=== PATIENT | female | born 1965 | race Caucasian/White ===

== ENCOUNTER 2018-12-14 10:15 | Observation (INO) | payer OTHER ==
[2018-12-14] MEDS ORDERED: SODIUM CHLORIDE 0.9% 500 ML IV ONE (10:31)
--- NOTE | 2018-12-14 10:34 | Emergency Department Record ---
History of Present Illness - General Chief complaint: Female Urogenital Problem Stated complaint: POSSIBLE BLADDER INFECTION Time Seen by Provider: 12/14/18 10:27 Source: Patient Mode of Arrival: Ambulatory Limitations: No limitations - History of Present Illness Initial comments: The patient is here due to worsening dysuria for the last few days. She was originally at the 2 weeks ago and diagnosed with a UTI. The patient states she had been doing better then 2 days ago her symptoms returned. She had a fever or 101 2 days ago and has had a lot of bladder pressure. The patient denies any back pain, vomiting, diarrhea or AP. MD Complaint: Dysuria Onset/Timin -: Week(s) Improves with: None Worsens with: None Associated Symptoms: Abdominal pain, Fever/chills, Nausea/vomiting - Related Data Allergies Allergy/AdvReac Type Severity Reaction Status Date / Time Penicillins Allergy Intermediate hives Verified 12/14/18 10:20 promethazine HCl AdvReac Intermediate anxious Verified 12/14/18 10:30 [From Phenergan] thiethylperazine maleate AdvReac Intermediate muscle Verified 12/14/18 10:30 [From Torecan] spasm Travel Screening - Travel/Exposure Within Last 30 Days Have you traveled within the last 30 days?: No Review of Systems Constitutional: Reports: Fever, Malaise. Denies: Chills Eyes: Denies: Eye discharge ENT: Denies: Congestion Respiratory: Denies: Cough Cardiovascular: Denies: Arrhythmia Endocrine: Reports: Fatigue Gastrointestinal: Denies: Nausea Genitourinary: Reports: Dysuria Musculoskeletal: Denies: Arthralgia Skin: Denies: Bruising Neurological: Denies: Abnormal gait Past Medical History - SOCIAL HISTORY Smoking Status: Never smoker Alcohol Use: None Drug Use: None - RESPIRATORY Hx Respiratory Disorders: No - CARDIOVASCULAR Hx Cardio Disorders: Yes Hx Hypertension: Yes - NEURO Hx Neuro Disorders: No - GI Hx GI Disorders: No - Hx Genitourinary Disorders: Yes Hx UTI: Yes - ENDOCRINE Hx Endocrine Disorders: Yes Hx Thyroid Disease: Yes - MUSCULOSKELETAL Hx Musculoskeletal Disorders: No - PSYCH Hx Psych Problems: Yes Hx Anxiety: Yes Hx Depression: Yes - HEMATOLOGY/ONCOLOGY Hx Hematology/Oncology Disorders: No Family Medical History Any Significant Family History?: No Physical Exam - General General Appearance: Alert, Oriented x3, Cooperative, No acute distress - Head Head exam: Atraumatic, Normocephalic, Normal inspection - Eye Eye exam: Normal appearance, PERRL - ENT Throat exam: Normal inspection. negative: Tonsillar erythema, Tonsillar exudate - Neck Neck exam: Normal inspection, Full ROM. negative: Tenderness - Respiratory Respiratory exam: Normal lung sounds bilaterally. negative: Respiratory distress - Cardiovascular Cardiovascular Exam: Regular rate, Normal rhythm, Normal heart sounds - GI/Abdominal GI/Abdominal exam: Soft, Normal bowel sounds. negative: Tenderness - Extremities Extremities exam: Normal inspection, Full ROM, Normal capillary refill. negative: Tenderness - Back Back exam: Reports: Normal inspection, CVA tenderness (L). Denies: CVA tenderness (R), Vertebral tenderness - Neurological Neurological exam: Alert, Normal gait. negative: Abnormal gait, Motor sensory deficit Course Vital Signs 12/14/18 10:17 Temperature 99.2 F Pulse Rate 89 Respiratory 20 Rate Blood Pressure 143/85 Pulse Ox 98 - Reevaluation(s) Reevaluation #1: The patient is doing very well at this time. I did discuss the lab and CT results and the fact the patient clearly has a kidney infection. Due to that fact I did recommend hospital admission overnight and the patient did agree. I then did discuss the issues with Dr. Giles and he did accept the admission. 12/14/18 12:09 Medical Decision Making - Data Complexity MDM Data: Labs Ordered and/or Reviewed, X-Ray Ordered and/or Reviewed - Lab Data Result diagrams: 12/14/18 10:35 12/14/18 10:35 - Radiology Data Radiology results: Report reviewed (CT: L kidney and ureter stranding due to pyelonephritis. Neg for stone or hydro.) Disposition Disposition: Discharge Clinical Impression: Pyelonephritis Disposition: Still a Patient at [facility] Decision to Admit Date: 12/14/18 Decision to Admit Time: 12:10 Accepting Physician: Tisha Time Discussed w/Accepting Physician: 12:10 Condition: (2) Stable Time of Disposition: 12:10 Quality - Quality Measures Quality Measures: N/A - Blood Pressure Screening View Details: Yes Does Patient Have Any of the Following: No Blood Pressure Classification: Pre-Hypertensive BP Reading Systolic Measurement: 143 Diastolic Measurement: 85 Screening for High Blood Pressure: < Pre-Hypertensive BP, F/U Documented > [G8950] Pre-Hypertensive Follow-up Interventions: Referral to alternative/primary care provider.
[2018-12-14 10:45] LABS: URINE APPEARANCE CLEAR; URINE BILIRUBIN NEGATIVE (NEGATIVE); URINE BLOOD MODERATE (NEGATIVE); URINE COLOR YELLOW; URINE GLUCOSE (UA) NEGATIVE (NEGATIVE); URINE KETONE NEGATIVE (NEGATIVE); URINE LEUKOCYTE ESTERASE MODERATE (NEGATIVE); URINE NITRITE NEGATIVE (NEGATIVE); URINE PROTEIN TRACE (NEGATIVE); URINE UROBILINOGEN 0.2 E.U./dL (0.20 - 1.00)
[2018-12-14 10:46] LABS: ABSOLUTE NEUTROPHIL COUNT 13.34; HEMATOCRIT 44.2 % (35.0-47.0); HEMOGLOBIN 14.3 gm/dl (11.6-16.0); MEAN CORPUSCULAR HEMOGLOBIN 30.4 pg (27-33); MEAN CORPUSCULAR HGB CONC 32.4 g/dl (32-36); MEAN PLATELET VOLUME 10.9 fl (7.4-10.4); PLATELET COUNT 229 K/uL (130-400); RED CELL DISTRIBUTION WIDTH 14.8 % (11.5-14.5); WHITE BLOOD COUNT W/O DIFF 16.5 K/uL (4.2-12.2)
[2018-12-14 10:56] LABS: URINE BACTERIA 4+; URINE EPITHELIAL CELLS RARE (FEW)
[2018-12-14 11:00] LABS: BLOOD UREA NITROGEN 8 mg/dL (6-20); CREATININE 0.6 mg/dL (0.5-0.9); EST GLOMERULAR FILTRATION RATE > 60 mL/min
[2018-12-14 11:01] LABS: PLATELET ESTIMATE NORMAL (NORMAL)
[2018-12-14 11:03] LABS: GLUCOSE,RANDOM 147 mg/dL (74-109)
[2018-12-14] MEDS ORDERED: CIPROFLOXACIN LACTATE/D5W 400 MG/200 ML BAG IVPB ONE (11:06)
[2018-12-14] MEDS ORDERED: KETOROLAC 30 MG/ML VIAL IVP ONE (11:38)
[2018-12-14] MEDS ORDERED: CIPROFLOXACIN LACTATE/D5W 400 MG/200 ML BAG IVPB SCH (13:03)
--- NOTE | 2018-12-14 13:12 | History & Physical ---
History of Present Illness - Date of Service Date of Service for History & Physical: 12/14/18 - History of Present Illness Admitting Diagnosis: 1. Acute Pyelonephritis History of Present Illness: Mrs. Shankar is a pleasant 53 y/o female who presents with symptoms of acute left lower back pain, and urinary frequency. The patient was seen in [facility] on 11/30 with complaint of urinary frequency, burning and urgency and was diagnosed with UTI with UA showing large leukocytes, and subsequent culture showing E. coli and sensitivity to Nitrofurantoin. The patient completed a seven day course of Nitrofurnatoin and says that she felt better but her over the weekend her symptoms returned. She was following up with Dr. Jenkins today to establish care at [facility] and another UA was drawn which showed hematuria, large nitrites and leukcoytes. The patient was sent to the ED for further evaluation and she is admitted for IV antibiotic therapy for recurring UTI. PCP: Dr. Jenkins. Travel Screening - Travel/Exposure Within Last 30 Days Have you traveled within the last 30 days?: No Review of Systems Constitutional: Reports: Fever, Malaise. Denies: Chills Eyes: Denies: Eye discharge ENT: Denies: Congestion Respiratory: Denies: Cough Cardiovascular: Denies: Arrhythmia Endocrine: Reports: Fatigue Gastrointestinal: Denies: Nausea Genitourinary: Reports: Dysuria Musculoskeletal: Denies: Arthralgia Skin: Denies: Bruising Neurological: Denies: Abnormal gait Past Medical History - SOCIAL HISTORY Smoking Status: Never smoker Alcohol Use: None Drug Use: None - RESPIRATORY Hx Respiratory Disorders: No - CARDIOVASCULAR Hx Cardio Disorders: Yes Hx Hypertension: Yes - NEURO Hx Neuro Disorders: No - GI Hx GI Disorders: No - Hx Genitourinary Disorders: Yes Hx UTI: Yes - ENDOCRINE Hx Endocrine Disorders: Yes Hx Thyroid Disease: Yes - MUSCULOSKELETAL Hx Musculoskeletal Disorders: No - PSYCH Hx Psych Problems: Yes Hx Anxiety: Yes Hx Depression: Yes - HEMATOLOGY/ONCOLOGY Hx Hematology/Oncology Disorders: No Family Medical History Any Significant Family History?: No H&P Meds/Allergies - Allergies Allergies: Allergies Allergy/AdvReac Type Severity Reaction Status Date / Time Penicillins Allergy Intermediate hives Verified 12/14/18 10:20 promethazine HCl AdvReac Intermediate anxious Verified 12/14/18 10:30 [From Phenergan] thiethylperazine maleate AdvReac Intermediate muscle Verified 12/14/18 10:30 [From Torecan] spasm - Active Medications Active Medications: Current Medications Acetaminophen (Tylenol 325mg) 650 mg PO Q4H PRN PRN Reason: PAIN - MILD(1-4)/FEVER Sodium Chloride () 1,000 mls @ 100 mls/hr IV .Q10H PRN PRN Reason: LARGE VOLUME IV Ciprofloxacin Lactate (Cipro) 400 mg in 200 mls @ 200 mls/hr IVPB Q12H ELPIDIO Stop: 12/19/18 13:04 Levothyroxine Sodium (Synthroid) 50 mcg PO DAILY [facility]PIDIO Metoprolol Succinate (Toprol Xl) 25 mg PO DAILY [facility] Non-Formulary Medication (Citalopram Hydrobromide [Citalopram Hbr]) 40 mg PO DAILY [facility]IO Quetiapine Fumarate (Seroquel) 25 mg PO DAILY [facility] Physical Exam - Vital Signs Vital Signs: Vital Signs - Last 24 Hrs Temp Pulse Resp BP Pulse Ox 12/14/18 10:17 99.2 F 89 20 143/85 98 - General General Appearance: Alert, Oriented x3, Cooperative, No acute distress Limitations: No limitations - Head Head exam: Atraumatic, Normocephalic, Normal inspection - Eye Eye exam: Normal appearance, PERRL - ENT Throat exam: Normal inspection. negative: Tonsillar erythema, Tonsillar exudate - Neck Neck exam: Normal inspection, Full ROM. negative: Tenderness - Respiratory Respiratory exam: Normal lung sounds bilaterally. negative: Respiratory distress - Cardiovascular Cardiovascular Exam: Regular rate, Normal rhythm, Normal heart sounds Peripheral Pulses: 3+: Radial (R), Radial (L), Dorsalis Pedis (R), Dorsalis Pedis (L) - GI/Abdominal GI/Abdominal exam: Soft, Normal bowel sounds. negative: Tenderness - Rectal Rectal exam: Deferred - exam: Deferred - Extremities Extremities exam: Normal inspection, Full ROM, Normal capillary refill. negative: Tenderness - Back Back exam: Reports: Normal inspection, CVA tenderness (L). Denies: CVA tenderness (R), Vertebral tenderness - Neurological Neurological exam: Alert, Normal gait. negative: Abnormal gait, Motor sensory deficit Results - Labs Result Diagrams: 12/14/18 10:35 12/14/18 10:35 Labs Last 24 Hours: Laboratory Results - last 24 hr 12/14/18 12/14/18 12/14/18 10:35 10:35 10:35 WBC 16.5 H RBC 4.70 Hgb 14.3 Hct 44.2 MCV 94.0 MCH 30.4 MCHC 32.4 RDW 14.8 H Plt Count 229 MPV 10.9 H Neutrophils % 79.0 Eosinophils % Not Reportable Basophils % Not Reportable Absolute Neutrophils 13.34 Lymphocytes 12.0 L Monocytes 9.0 Platelet Estimate Normal RBC Morphology Normal Sodium 135 L Potassium 3.7 Chloride 99 Carbon Dioxide 24.0 Anion Gap 12.0 BUN 8 Creatinine 0.6 Estimated GFR > 60 Random Glucose 147 H Calcium 9.1 C-Reactive Protein Urine Color Yellow Urine Appearance Clear Urine pH 7.0 Ur Specific [place] 1.010 Urine Protein Trace H Urine Glucose (UA) Negative Urine Ketones Negative Urine Blood Moderate Urine Nitrite Negative Urine Bilirubin Negative Urine Urobilinogen 0.2 Ur Leukocyte Esterase Moderate H Urine RBC 7 - 10 Urine WBC 10 - 15 Ur Epithelial Cells Rare Urine Bacteria 4+ 12/14/18 10:35 WBC RBC Hgb Hct MCV MCH MCHC RDW Plt Count MPV Neutrophils % Eosinophils % Basophils % Absolute Neutrophils Lymphocytes Monocytes Platelet Estimate RBC Morphology Sodium Potassium Chloride Carbon Dioxide Anion Gap BUN Creatinine Estimated GFR Random Glucose Calcium C-Reactive Protein 19.40 H Urine Color Urine Appearance Urine pH Ur Specific [place] Urine Protein Urine Glucose (UA) Urine Ketones Urine Blood Urine Nitrite Urine Bilirubin Urine Urobilinogen Ur Leukocyte Esterase Urine RBC Urine WBC Ur Epithelial Cells Urine Bacteria VTE H&P Assessment - Risk for VTE Risk for VTE: No Risk Level: Very Low Risk Assessment Date: 12/14/18 Risk Assessment Time: 13:30 VTE Orders Placed or Will Be Placed: No VTE Reason for No Prophylaxis: Not Indicated (Pt ambulatory) Plan - Detailed Diagnosis and Plan (1) Acute pyelonephritis Current Visit: Yes Status: Acute Base Code: N10 - ACUTE PYELONEPHRITIS Comment: 12/14/18: - CT abdo/pelvis: left perinephric/periuretral fat stranding noted. - UA positive for RBCs, leukocytes/nitrites. WBC 16.5, mild CVA tenderness. - Last UCX: E coli. > 100K, new CHERELLE pending. - Cipro 400mg IV Q12H ordered pending cultures. IVF 0.9% nacl @ 100mL/hr. - Tylenol 650mg Q4H PRN fever/pain. - Repeat CBC w/diff and BMP ordered. (2) HTN (hypertension) Current Visit: Yes Status: Acute Base Code: I10 - ESSENTIAL (PRIMARY) HYPERTENSION Comment: 12/14/18: - Resume Metoprolol 25mg daily. (3) Depression Current Visit: Yes Status: Chronic Base Code: F32.9 - MAJOR DEPRESSIVE DISORDER, SINGLE EPISODE, UNSPECIFIED Comment: 12/14/18: - Resume Celexa 40mg, Seroquel 25 mg QD. (4) Hypothyroid Current Visit: Yes Status: Acute Base Code: E03.9 - HYPOTHYROIDISM, UNSPECIFIED Comment: 12/14/18: - Resume Levothyroxine 50mcg daily. (5) DVT prophylaxis Current Visit: Yes Status: Acute Base Code: Z29.9 - ENCOUNTER FOR PROPHYLACTIC MEASURES, UNSPECIFIED Comment: 12/14/18: - Nursing to encourage ambulation. (6) Full code status Current Visit: Yes Status: Acute Base Code: Z78.9 - OTHER SPECIFIED HEALTH STATUS
[2018-12-14] MEDS: 0.9 % SODIUM CHLORIDE 1000ML 1,000 ML IV PRN (14:00)
[2018-12-14] MEDS: ACETAMINOPHEN 325 MG TAB PO PRN (15:48)
[2018-12-14] MEDS: KETOROLAC 30 MG/ML VIAL IVP PRN (17:38)
[2018-12-14] MEDS: CEFTRIAXONE 1GM/50ML BAG 1 GM/50 ML BAG IVPB SCH (17:44)
[2018-12-14] MEDS ORDERED: LORATADINE 10 MG TABLET PO SCH (22:00)
[2018-12-14] MEDS ORDERED: QUETIAPINE FUMARATE 25 MG TABLET PO PRN (22:00)
[2018-12-14] MEDS ORDERED: CITALOPRAM 20 MG TABLET PO SCH (22:00)
[2018-12-14] MEDS ORDERED: METOPROLOL SUCC 25 MG TAB.ER PO SCH (22:00)
[2018-12-15] MEDS: KETOROLAC 30 MG/ML VIAL IVP PRN ×3 (00:07→16:41)
[2018-12-15] MEDS: 0.9 % SODIUM CHLORIDE 1000ML 1,000 ML IV PRN (00:10)
--- NOTE | 2018-12-15 05:27 | CT SCAN REPORT ---
EXAM: CT SCAN OF THE ABDOMEN AND PELVIS WITHOUT CONTRAST HISTORY: ABDOMINAL PAIN, BACK PAIN, AND LEFT FLANK PAIN. FEVER. TECHNIQUE: Standard CT imaging of the abdomen and pelvis was performed without contrast. Comparison: None. FINDINGS: There is minor dependent atelectasis at both lung bases. There is trace left pleural fluid. The liver, gallbladder, biliary tree, pancreas, spleen and adrenal glands are normal. There is left perinephric and periureteral fat stranding with no obstructing calculus. There is minor prominence of the left renal pelvis. An 8 x 5 mm nonobstructing stone is present at the lower pole of the left kidney. There is a 4 mm nonobstructing stone at the upper pole of the left kidney. The right kidney and ureter are normal. The aorta is normal in caliber. There is no retroperitoneal lymphadenopathy. The large and small bowel loops including the appendix are normal. There are no focal inflammatory changes. There is no pneumoperitoneum or ascites. The urinary bladder appears normal. The uterus and adnexa are unremarkable. There is a tiny fat containing umbilical hernia. There are no acute osseous abnormalities. IMPRESSION: 1. LEFT PERIURETERAL AND PERINEPHRIC FAT STRANDING WITHOUT OBSTRUCTING CALCULUS. THE APPEARANCE IS SUSPICIOUS FOR DEVELOPING LEFT PYELONEPHRITIS. 2. NONOBSTRUCTING LEFT INTRARENAL CALCULI. 3. TRACE LEFT PLEURAL FLUID. JOB NUMBER: [id number] [facility]
[2018-12-15] MEDS: CEFTRIAXONE 1GM/50ML BAG 1 GM/50 ML BAG IVPB SCH ×3 (06:06→16:45)
[2018-12-15 06:59] LABS: HEMATOCRIT 40.1 % (35.0-47.0); HEMOGLOBIN 12.8 gm/dl (11.6-16.0); MEAN CELL VOLUME 95.2 fl (81-97); MEAN CORPUSCULAR HEMOGLOBIN 30.4 pg (27-33); MEAN CORPUSCULAR HGB CONC 31.9 g/dl (32-36); MEAN PLATELET VOLUME 11.2 fl (7.4-10.4); PLATELET COUNT 188 K/uL (130-400); RED BLOOD COUNT 4.21 M/uL (3.80-5.40); RED CELL DISTRIBUTION WIDTH 14.9 % (11.5-14.5); WHITE BLOOD COUNT W/O DIFF 10.8 K/uL (4.2-12.2)
[2018-12-15] MEDS ORDERED: LEVOTHYROXINE SODIUM 50 MCG TABLET PO SCH (07:00)
--- NOTE | 2018-12-15 12:10 | Discharge Summary ---
Providers Discharge Summary Date: 12/15/18 Date of admission: 12/14/18 12:33 Expected Date of Discharge: 12/15/18 Attending physician: AMANDA HAIR Primary care physician: Praveena Physical Exam - Vital Signs Vital Signs: Vital Signs - Last 24 Hrs Temp Pulse Pulse Resp BP BP Pulse Ox 12/15/18 07:13 98.6 F 100 H 18 136/74 97 12/15/18 05:00 98.5 F 92 H 18 134/83 97 12/14/18 23:57 98.5 F 101 H 18 125/72 95 12/14/18 20:18 16 12/14/18 20:00 97.8 F 83 18 122/76 97 12/14/18 15:52 97.9 F 82 18 137/85 98 12/14/18 12:55 98.1 F 78 18 138/85 96 12/14/18 12:25 98.6 F 74 20 125/81 94 L - General General Appearance: Alert, Oriented x3, Cooperative, No acute distress Limitations: No limitations - Head Head exam: Atraumatic, Normocephalic, Normal inspection - Eye Eye exam: Normal appearance, PERRL - ENT ENT exam: Normal exam Ear exam: Normal external inspection Nasal Exam: Normal inspection Mouth exam: Normal external inspection Throat exam: Normal inspection. negative: Tonsillar erythema, Tonsillar exudate - Neck Neck exam: Normal inspection, Full ROM. negative: Tenderness - Respiratory Respiratory exam: Normal lung sounds bilaterally. negative: Respiratory distress - Cardiovascular Cardiovascular Exam: Regular rate, Normal rhythm, Normal heart sounds Peripheral Pulses: 3+: Radial (R), Radial (L), Dorsalis Pedis (R), Dorsalis Pedis (L) - GI/Abdominal GI/Abdominal exam: Soft, Normal bowel sounds. negative: Tenderness - Rectal Rectal exam: Deferred - exam: Deferred - Extremities Extremities exam: Normal inspection, Full ROM, Normal capillary refill. negative: Tenderness - Back Back exam: Reports: Normal inspection, CVA tenderness (L) (pt reports decreased pain since yesterday). Denies: CVA tenderness (R), Vertebral tenderness - Neurological Neurological exam: Alert, Normal gait. negative: Abnormal gait, Motor sensory deficit Hospitalization - Hospitalization Admission Diagnosis: 1. Acute Pyelonephritis - Problem List/Discharge Diagnosis (1) Acute pyelonephritis Current Visit: Yes Status: Acute Base Code: N10 - ACUTE PYELONEPHRITIS Comment: 12/14/18: - CT abdo/pelvis: left perinephric/periuretral fat stranding noted. - UA positive for RBCs, leukocytes/nitrites. WBC 16.5, mild CVA tenderness. - Last UCX: E coli. > 100K, new CHERELLE pending. - Cipro 400mg IV Q12H ordered pending cultures. IVF 0.9% nacl @ 100mL/hr. - Tylenol 650mg Q4H PRN fever/pain. - Repeat CBC w/diff and BMP ordered. 12/15/18 -pt is tolerating PO fluids, making urine with no difficulties -eating 50% or greater of meals -pain is decreasing, current culture still pending, has prev cultire from 11/30/18 that shows no resistance -Cefdnir 300mg BID for 9 more days after HS dose of Rocephin this evening -Pt has f/u with PCP in 1 week, Dr Grissom is also aware of POC and d/c -left CVA tenderness improving, WBC 16.5->10.8 improved, CRP to be repeated by PCP (2) HTN (hypertension) Current Visit: Yes Status: Acute Base Code: I10 - ESSENTIAL (PRIMARY) HYPERTENSION Comment: 12/15/18: - Resume Metoprolol 25mg daily. -VSS (3) Hypothyroid Current Visit: Yes Status: Acute Base Code: E03.9 - HYPOTHYROIDISM, UNSPECIFIED Comment: 12/15/18: - Resume Levothyroxine 50mcg daily. (4) Depression Current Visit: Yes Status: Chronic Base Code: F32.9 - MAJOR DEPRESSIVE DISORDER, SINGLE EPISODE, UNSPECIFIED Comment: 12/15/18: - Resume Celexa 40mg, Seroquel 25 mg QD. (5) DVT prophylaxis Current Visit: Yes Status: Acute Base Code: Z29.9 - ENCOUNTER FOR PROPHYLACTIC MEASURES, UNSPECIFIED Comment: 12/15/18: - Nursing to encourage ambulation. (6) Full code status Current Visit: Yes Status: Acute Base Code: Z78.9 - OTHER SPECIFIED HEALTH STATUS Comment: 12/15/18 full code status - Hospitalization Course Hospital Course: Mrs. Shankar is a pleasant 53 y/o female who presents with symptoms of acute left lower back pain, and urinary frequency. The patient was seen in [facility] on 11/30 with complaint of urinary frequency, burning and urgency and was diagnosed with UTI with UA showing large leukocytes, and subsequent culture showing E. coli and sensitivity to Nitrofurantoin. The patient completed a seven day course of Nitrofurnatoin and says that she felt better but her over the weekend her symptoms returned. She was following up with Dr. Jenkins today to establish care at [facility] and another UA was drawn which showed hematuria, large nitrites and leukcoytes. The patient was sent to the ED for further evaluation and she is admitted for IV antibiotic therapy for recurring UTI. PCP: Dr. Jenkins. Procedures: Imaging and X-Rays 12/14/18 11:05 ABDOMEN/PELVIS WO CONTRAST [CT] Stat Abnormal Labs: Abnormal Lab Results 12/14/18 12/14/18 12/14/18 Range/Units 10:35 10:35 10:35 WBC 16.5 H (4.2-12.2) K/uL MCHC (32-36) g/dl RDW 14.8 H (11.5-14.5) % MPV 10.9 H (7.4-10.4) fl Neutrophils % (47-80) % Lymphocytes 12.0 L (16-45) % Sodium 135 L (136-145) mmol/L Random Glucose 147 H (74-109) mg/dL C-Reactive Protein (<0.5) mg/dL Urine Protein Trace H (NEGATIVE) Ur Leukocyte Esterase Moderate H (NEGATIVE) 12/14/18 12/15/18 Range/Units 10:35 06:20 WBC (4.2-12.2) K/uL MCHC 31.9 L (32-36) g/dl RDW 14.9 H (11.5-14.5) % MPV 11.2 H (7.4-10.4) fl Neutrophils % 83.0 H (47-80) % Lymphocytes 9.0 L (16-45) % Sodium (136-145) mmol/L Random Glucose (74-109) mg/dL C-Reactive Protein 19.40 H (<0.5) mg/dL Urine Protein (NEGATIVE) Ur Leukocyte Esterase (NEGATIVE) Condition at Discharge: (2) Stable Discharge Medications - Discharge Medications Prescriptions: Cefdinir [Omnicef] 300 mg PO BID 9 Days #18 cap Home Medications: Ambulatory Orders Citalopram Hydrobromide [Citalopram HBr] 40 mg PO QHS 12/17/17 [Last Taken Unkn own] Levothyroxine Sodium 50 mcg PO DAILY 12/17/17 [Last Taken Unknown] Quetiapine Fumarate 25 mg PO QHS PRN 12/17/17 [Last Taken Unknown] Metoprolol Succinate 25 mg PO QHS 09/21/18 [Last Taken Unknown] Cetirizine HCl 10 mg PO QHS 12/14/18 [Last Taken Unknown] [place]-3 Fatty Acids/Fish Oil [Fish Oil 1,000 mg Capsule] 1 each PO QPM 12/14/18 [Last Taken Unknown] Acetaminophen [Tylenol 325Mg] 650 mg PO Q4H PRN tablet 12/15/18 [Last Taken Unknown] Cefdinir [Omnicef] 300 mg PO BID 9 Days #18 cap 12/15/18 [Last Taken Unknown] Loratadine [Claritin] 10 mg PO QHS tablet 12/15/18 [Last Taken Unknown] Discharge Plan - Discharge Instructions Activity at Discharge: Increase Activity as Tolerated Diet at Discharge: Regular Diet Additional Instructions: Appointment with Dr. 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 If you are unable to hold down your antibiotic, you need to contact your PCP or the Med/Surg floor because your infection needs continued treatment. Take the antibiotics with food if needed. Quality Measures - Quality Measures Quality Measures: Documentation of Current Medications in Medical Record, Screening for High Blood Pressure and F/U Documented - Current Medications Quality Measure: Measure #130: Documentation of Current Medications Documentation of Current Medications: <Current Medications Documented/Reviewed> [G8427] - Blood Pressure Screening Quality Measure: Screening for High Blood Pressure and Follow-Up Documented Does Patient Have Any of the Following: Active Dx of HTN Blood Pressure Classification: Pre-Hypertensive BP Reading Systolic Measurement: 125 Diastolic Measurement: 81 Screening for High Blood Pressure: Patient Exclusion, Hx of HTN [G9744] Pre-Hypertensive Follow-up Interventions: Referral to alternative/primary care provider. - Elder Abuse Suspicion Index EASI Reference Information: Myke ORTIZ, Ronnie C, Quinn D, Patrick Perez.Development and validation of a tool to assist physicians identification of elder abuse: The Elder Abuse Suspicion Index (EASI ). Journal of Elder Abuse and Neglect, 2008; 20 (3): 276-300.
[2018-12-15] MEDS: ACETAMINOPHEN 325 MG TAB PO PRN (14:24)
== END 2018-12-15 17:30 | disposition home or self-care (01) ==
LOC: ER 10:15 → MEDSURG 12:33
PROVIDERS: ADMIT Internal Medicine; ATTEND Internal Medicine
DX: N10 Acute pyelonephritis (principal); R30.0 Dysuria; R50.9 Fever, unspecified; F32.9 Major depressive disorder, single episode, unspecified; I10 Essential (primary) hypertension; E03.9 Hypothyroidism, unspecified
CPT/HCPCS: 99285 ×2; 96365; 96375; 96361; 86140; 80048; 81001; 85027 ×2; 74176; G0378 ×2; J0744; J1885 ×2; J0696 ×2; 99217; 99220